=== PATIENT | male | born 1980 | race Hispanic/Latino ===

== ENCOUNTER 2019-12-12 19:11 | Emergency (ER) | payer MEDICARE ==
[2019-12-12 20:02] LABS: Amphetamine Screen,Urine PRESUMPTIVE NEGATIVE; Benzodiazepines Screen,Urine PRESUMPTIVE NEGATIVE; Cannabinoid Screen,Urine PRESUMPTIVE NEGATIVE; Cocaine Screen,Urine PRESUMPTIVE NEGATIVE; Methadone Screen,Urine PRESUMPTIVE NEGATIVE; Opiate Screen,Urine PRESUMPTIVE NEGATIVE
[2019-12-12 20:04] LABS: Bilirubin,Urine NEG (Negative); Blood,Urine NEG (Negative); Color,Urine Yellow (Yellow); Sperm,Urine FEW /HPF (NP); Urobilinogen,Urine < 2.0 mg/dL (<2.0); WBC,Urine < 1.0 /HPF (0.0-6.0)
[2019-12-12 20:18] LABS: Hematocrit 43.6 % (35.5-45.6); Hemoglobin 14.8 gm/dl (11.8-15.2); Mean Corpuscular HGB Conc 34 % (32-34); Mean Corpuscular Volume 89 fl (84-94); Platelet Count 232 K/mm3 (140-440); Red Blood Count 4.89 M/mm3 (3.65-5.03); Red Cell Distribution Width 13.8 % (13.2-15.2)
[2019-12-12 20:35] LABS: BUN/Creatinine Ratio 13; Blood Urea Nitrogen 10 mg/dL (9-20); Calcium 9.8 mg/dL (8.4-10.2); Hemolysis Index 9
--- NOTE | 2019-12-12 20:57 | Emergency Department Report ---
ED General Adult HPI - General Chief complaint: Psych Stated complaint: HOMICIDAL IDEATION Time Seen by Provider: 12/12/19 19:37 PUI?: No Source: patient, RN notes reviewed, old records reviewed Mode of arrival: Ambulatory Limitations: No Limitations - History of Present Illness Initial comments: The patient is a 38-year-old gentleman with a history of psychiatric disease. He reports that he was recently released from an inpatient psychiatric hospitalization and transferred to a skilled nursing. He has been in this skilled nursing for 2 days. He states he does not like this skilled nursing. He states that he feels "unsafe there." He reports that he is concerned that somebody stole some of his things. He reports that being in this skilled nursing makes him feel homicidal, and that he might "lash out." He denies physical pain at this time. He denies suicidality and wanting to overdose. This is a new skilled nursing for the patient, previously, he was in another skilled nursing, which "kicked me out because of drinking alcohol." He denies cough, fever, urinary symptoms, overdose, and coronavirus exposure. -: Gradual Severity scale (0 -10): 0 Consistency: constant Improves with: none Worsens with: none Associated Symptoms: denies other symptoms - Related Data Home Medications Medication Instructions Recorded Confirmed Last Taken Benztropine [Cogentin] 1 mg PO BID 05/05/14 12/12/19 Unknown Methylphenidate HCl [Ritalin] 10 mg PO BID 05/05/14 12/12/19 Unknown QUEtiapine [SEROquel] 600 mg PO HS 05/05/14 12/12/19 Unknown Paliperidone [Invega] 6 mg PO DAILY 12/12/19 12/12/19 Unknown propranoloL [Inderal] 20 mg PO HS 12/12/19 12/12/19 Unknown Allergies Allergy/AdvReac Type Severity Reaction Status Date / Time [place] Allergy Swelling Verified 05/05/14 06:30 ED Review of Systems ROS: Stated complaint: HOMICIDAL IDEATION Other details as noted in HPI Comment: All other systems reviewed and negative Psychiatric: as per HPI. denies: anxiety, depression, auditory hallucinations, visual hallucinations, suicidal thoughts ED Past Medical Hx - Past Medical History Previous Medical History?: Yes Hx Psychiatric Treatment: Yes (paranoid, schizophrenia) Hx Asthma: Yes - Surgical History Past Surgical History?: Yes Additional Surgical History: left knee surgery - Social History Smoking Status: Current Every Day Smoker Substance Use Type: Alcohol - Medications Home Medications: Home Medications Medication Instructions Recorded Confirmed Last Taken Type Benztropine [Cogentin] 1 mg PO BID 05/05/14 12/12/19 Unknown History Methylphenidate HCl [Ritalin] 10 mg PO BID 05/05/14 12/12/19 Unknown History QUEtiapine [SEROquel] 600 mg PO HS 05/05/14 12/12/19 Unknown History Paliperidone [Invega] 6 mg PO DAILY 12/12/19 12/12/19 Unknown History propranoloL [Inderal] 20 mg PO HS 12/12/19 12/12/19 Unknown History ED Physical Exam - General Limitations: No Limitations General appearance: alert, in no apparent distress - Head Head exam: Present: atraumatic, normocephalic - Eye Eye exam: Present: normal appearance, PERRL, EOMI, other (Visual acuity intact to finger counting, color perception, reading at a close distance). Absent: nystagmus - ENT ENT exam: Present: normal exam, normal orophraynx, mucous membranes moist, normal external ear exam - Neck Neck exam: Present: normal inspection, full ROM. Absent: tenderness, meningismus - Respiratory Respiratory exam: Present: normal lung sounds bilaterally. Absent: respiratory distress - Cardiovascular Cardiovascular Exam: Present: normal rhythm, tachycardia, normal heart sounds. Absent: systolic murmur, diastolic murmur, rubs, gallop - GI/Abdominal GI/Abdominal exam: Present: soft. Absent: distended, tenderness, guarding, rebound, rigid, pulsatile mass - Rectal Rectal exam: Present: deferred - Extremities Exam Extremities exam: Present: normal inspection, full ROM, other (2+ pulses noted in the bilateral upper and lower extremities. There is no palpable cord. negative Homans sign. Muscular compartments are soft. The pelvis is stable.). Absent: pedal edema, calf tenderness - Back Exam Back exam: Present: normal inspection, full ROM. Absent: tenderness, CVA tenderness (R), CVA tenderness (L), paraspinal tenderness, vertebral tenderness - Neurological Exam Neurological exam: Present: alert, oriented X3, normal gait, other (There is no facial droop. The tongue is midline. Extraocular movements are intact bi laterally. There is 5 out of 5 strength in bilateral upper and lower extremities. Sensation is intact to light touch bilateral upper and lower extremities. There is no past-pointing. There is no pronator drift. There is normal [id number]. There is a normal gait.). Absent: motor sensory deficit - Psychiatric Psychiatric exam: Present: flat affect. Absent: suicidal ideation - Skin Skin exam: Present: warm, dry, intact, normal color. Absent: rash ED Course Vital Signs 12/12/19 12/12/19 12/12/19 19:35 22:49 23:10 Temperature 98.4 F Pulse Rate 104 H 94 H Pulse Rate [ 82 Bilateral Throughout] Respiratory 18 Rate Respiratory 18 Rate [Bilateral Throughout] Blood Pressure 119/78 Blood Pressure 126/90 [Left] O2 Sat by Pulse 94 Oximetry 12/13/19 12/13/19 01:44 13:38 Temperature 97.6 F 98.3 F Pulse Rate 77 72 Pulse Rate [ Bilateral Throughout] Respiratory 16 18 Rate Respiratory Rate [Bilateral Throughout] Blood Pressure Blood Pressure 107/42 100/60 [Left] O2 Sat by Pulse 95 97 Oximetry - Reevaluation(s) Reevaluation #1: 12/12/19 20:55 Differential diagnosis, including but not limited to: Mood disorder, case management patient, malingering, secondary gain, medical clearance for psychiatric placement Assessment and plan: 38-year-old gentleman who is pleasant, calm and cooperative, not violent, combative or belligerent, who is presenting after being in a skilled nursing for 2 days, with dissatisfaction with his skilled nursing, and an articulation of wanting to possibly harm other people. His physical examination is unremarkable. Laboratory studies unremarkable for toxicologic insult. I had extensive discussion with the patient. He is alert, oriented, sober, walks with a steady gait, and he does exhibit decision-making capacity. I instructed the patient that we would be happy to observe him overnight pending psychiatric evaluation and case management evaluation, however, I have a suspicion that the patient is articulating psychiatric symptoms because he is dissatisfied with his current living situation. The patient tells me that he does not want to go to a homeless group home, he also tells me that he cannot go home to his mother, because "she kicked me out." He does report that his mother gets checks for his skilled nursing placement, that she pays the bills for his skilled nursing placement. He also demonstrated insight and decision-making capacity insofar is that he does not want to get coronavirus, or get sick from any patient who has coronavirus. The patient does not have coronavirus risk factors at this time, or symptoms suggestive of coronavirus. We will continue his medications. A psychiatric consultation and case management evaluation have been requested. At the moment, the patient does not appear to have an immediate medical and contraindication to psychiatric admission, evaluation, consultation and placement, or discharge, if case management and psychiatry feel like this is appropriate ED Medical Decision Making - Lab Data Result diagrams: 12/12/19 19:57 12/12/19 19:57 Vital Signs 12/12/19 19:35 Temperature 98.4 F Pulse Rate 104 H Respiratory 18 Rate Blood Pressure 126/90 [Left] O2 Sat by Pulse 94 Oximetry Lab Results 12/12/19 12/12/19 12/12/19 Range/Units 19:40 19:40 19:57 WBC (4.5-11.0) K/mm3 RBC (3.65-5.03) M/mm3 Hgb (11.8-15.2) gm/dl Hct (35.5-45.6) % MCV (84-94) fl MCH (28-32) pg MCHC (32-34) % RDW (13.2-15.2) % Plt Count (140-440) K/mm3 Sodium (137-145) mmol/L Potassium (3.6-5.0) mmol/L Chloride (98-107) mmol/L Carbon Dioxide (22-30) mmol/L Anion Gap mmol/L BUN (9-20) mg/dL Creatinine (0.8-1.5) mg/dL Estimated GFR ml/min BUN/Creatinine Ratio % Glucose (75-100) mg/dL Calcium (8.4-10.2) mg/dL Urine Color Yellow (Yellow) Urine Turbidity Clear (Clear) Urine pH 6.0 (5.0-7.0) Ur Specific [place] 1.026 (1.003-1.030) Urine Protein 30 mg/dl (Negative) mg/dL Urine Glucose (UA) Neg (Negative) mg/dL Urine Ketones Neg (Negative) mg/dL Urine Blood Neg (Negative) Urine Nitrite Neg (Negative) Urine Bilirubin Neg (Negative) Urine Urobilinogen < 2.0 (<2.0) mg/dL Ur Leukocyte Esterase Neg (Negative) Urine WBC (Auto) < 1.0 (0.0-6.0) /HPF Urine RBC (Auto) 1.0 (0.0-6.0) /HPF Urine Sperm Few (RFID ENGINEER) /HPF Salicylates < 0.3 L (2.8-20.0) mg/dL Urine Opiates Screen Presumptive negative Urine Methadone Screen Presumptive negative Acetaminophen (10.0-30.0) ug/mL Ur Barbiturates Screen Presumptive negative Ur Phencyclidine Scrn Presumptive negative Ur Amphetamines Screen Presumptive negative U Benzodiazepines Scrn Presumptive negative Urine Cocaine Screen Presumptive negative U Marijuana (THC) Screen Presumptive negative Drugs of Abuse Note Disclamer Plasma/Serum Alcohol (0-0.07) % 12/12/19 12/12/19 12/12/19 Range/Units 19:57 19:57 19:57 WBC (4.5-11.0) K/mm3 RBC (3.65-5.03) M/mm3 Hgb (11.8-15.2) gm/dl Hct (35.5-45.6) % MCV (84-94) fl MCH (28-32) pg MCHC (32-34) % RDW (13.2-15.2) % Plt Count (140-440) K/mm3 Sodium 138 (137-145) mmol/L Potassium 3.7 (3.6-5.0) mmol/L Chloride 99.5 (98-107) mmol/L Carbon Dioxide 20 L (22-30) mmol/L Anion Gap 22 mmol/L BUN 10 (9-20) mg/dL Creatinine 0.8 (0.8-1.5) mg/dL Estimated GFR > 60 ml/min BUN/Creatinine Ratio 13 % Glucose 102 H (75-100) mg/dL Calcium 9.8 (8.4-10.2) mg/dL Urine Color (Yellow) Urine Turbidity (Clear) Urine pH (5.0-7.0) Ur Specific [place] (1.003-1.030) Urine Protein (Negative) mg/dL Urine Glucose (UA) (Negative) mg/dL Urine Ketones (Negative) mg/dL Urine Blood (Negative) Urine Nitrite (Negative) Urine Bilirubin (Negative) Urine Urobilinogen (<2.0) mg/dL Ur Leukocyte Esterase (Negative) Urine WBC (Auto) (0.0-6.0) /HPF Urine RBC (Auto) (0.0-6.0) /HPF Urine Sperm (RFID ENGINEER) /HPF Salicylates (2.8-20.0) mg/dL Urine Opiates Screen Urine Methadone Screen Acetaminophen < 5.0 L (10.0-30.0) ug/mL Ur Barbiturates Screen Ur Phencyclidine Scrn Ur Amphetamines Screen U Benzodiazepines Scrn Urine Cocaine Screen U Marijuana (THC) Screen Drugs of Abuse Note Plasma/Serum Alcohol < 0.01 (0-0.07) % 12/12/19 Range/Units 19:57 WBC 10.5 (4.5-11.0) K/mm3 RBC 4.89 (3.65-5.03) M/mm3 Hgb 14.8 (11.8-15.2) gm/dl Hct 43.6 (35.5-45.6) % MCV 89 (84-94) fl MCH 30 (28-32) pg MCHC 34 (32-34) % RDW 13.8 (13.2-15.2) % Plt Count 232 (140-440) K/mm3 Sodium (137-145) mmol/L Potassium (3.6-5.0) mmol/L Chloride (98-107) mmol/L Carbon Dioxide (22-30) mmol/L Anion Gap mmol/L BUN (9-20) mg/dL Creatinine (0.8-1.5) mg/dL Estimated GFR ml/min BUN/Creatinine Ratio % Glucose (75-100) mg/dL Calcium (8.4-10.2) mg/dL Urine Color (Yellow) Urine Turbidity (Clear) Urine pH (5.0-7.0) Ur Specific [place] (1.003-1.030) Urine Protein (Negative) mg/dL Urine Glucose (UA) (Negative) mg/dL Urine Ketones (Negative) mg/dL Urine Blood (Negative) Urine Nitrite (Negative) Urine Bilirubin (Negative) Urine Urobilinogen (<2.0) mg/dL Ur Leukocyte Esterase (Negative) Urine WBC (Auto) (0.0-6.0) /HPF Urine RBC (Auto) (0.0-6.0) /HPF Urine Sperm (RFID ENGINEER) /HPF Salicylates (2.8-20.0) mg/dL Urine Opiates Screen Urine Methadone Screen Acetaminophen (10.0-30.0) ug/mL Ur Barbiturates Screen Ur Phencyclidine Scrn Ur Amphetamines Screen U Benzodiazepines Scrn Urine Cocaine Screen U Marijuana (THC) Screen Drugs of Abuse Note Plasma/Serum Alcohol (0-0.07) % Critical care attestation.: If time is entered above; I have spent that time in minutes in the direct care of this critically ill patient, excluding procedure time. ED Disposition Clinical Impression: Medical clearance for psychiatric admission Disposition: [id number]/TX-65 PSY HOSP/PSY UNIT Is pt being admited?: No Does the pt Need Aspirin: No Condition: Stable Referrals: VEDA DELUCA MD [Primary Care Provider] - 3-5 Days
[2019-12-12] MEDS ORDERED: LORazepam 1 MG TAB PO PRN (20:58)
[2019-12-12] MEDS ORDERED: QUEtiapine 200 MG TAB PO SCH (22:00)
[2019-12-12] MEDS ORDERED: PROPRANOLOL 10 MG TAB PO SCH (22:00)
[2019-12-12] MEDS ORDERED: METHYLPHENIDATE HCL 10 MG PO SCH (22:00)
[2019-12-12] MEDS ORDERED: QUEtiapine 25 MG TAB PO SCH (22:00)
[2019-12-12] MEDS: BENZTROPINE 1 MG TAB PO SCH (22:06)
[2019-12-12] MEDS: METHYLPHENIDATE 5 MG TAB PO SCH (22:46)
[2019-12-12] MEDS ORDERED: ALBUTEROL 2.5 MG/3 ML NEBU IH ONE (22:48)
[2019-12-13] MEDS: METHYLPHENIDATE 5 MG TAB PO SCH (11:06)
[2019-12-13] MEDS: BENZTROPINE 1 MG TAB PO SCH (11:07)
[2019-12-13] MEDS ORDERED: NICOTINE 21 MG/24 HR PATCH TD ONE (13:37)
[2019-12-13 13:41] VITALS: BP 100/60
== END 2019-12-13 17:07 ==
LOC: ED 19:11
DX: F20.0 Paranoid schizophrenia (principal); R45.850 Homicidal ideations; J45.909 Unspecified asthma, uncomplicated; F17.200 Nicotine dependence, unspecified, uncomplicated; Z98.890 Other specified postprocedural states; Z91.018 Allergy to other foods
CPT/HCPCS: 36415; 80048; 80307; 80320; 81001; 82550; 83735; 85027; 94640; 94644; G0480

== ENCOUNTER 2021-06-22 05:42 | Emergency (ER) | payer MEDICARE ==
[2021-06-22] MEDS ORDERED: SODIUM CHLORIDE 0.9% 1000 ML 1,000 ML IV ONE (06:34)
--- NOTE | 2021-06-22 06:44 | Emergency Department Report ---
ED Psych HPI - General Chief Complaint: Psych Stated Complaint: MH Time Seen by Provider: 06/22/21 06:33 Source: patient Mode of arrival: Ambulatory - History of Present Illness Initial Comments: Patient is 40 years old male with history of paranoid schizophrenia. Patient presented to the ER stating that he took 100 pill of Benadryl 25 mg. Patient stated that he started taking it yesterday around 8 AM and the last pill that he took was around midnight. Patient stated that he did not wanted to kill himself but he was depressed and he has nothing to do so he started to take the Benadryl. Patient denied homicidal ideation. Patient admitted that he is hearing voices but they are not asking him to kill himself to ask him to stop taking the Benadryl and go to the emergency room to get help. Patient stated that he is not compliant with his medication. MD Complaint: feels depressed -: days(s) Associated Psychiatric Symptoms: depression, auditory hallucinations Quality: constant Context: not taking psychiatric Associated Symptoms: denies other symptoms Treatments Prior to Arrival: none - Related Data Home Medications Medication Instructions Recorded Confirmed Last Taken Benztropine [Cogentin] 1 mg PO BID 05/05/14 06/22/21 Unknown Methylphenidate HCl [Ritalin] 10 mg PO BID 05/05/14 06/22/21 Unknown QUEtiapine [SEROquel] 600 mg PO HS 05/05/14 06/22/21 Unknown Paliperidone [Invega] 6 mg PO DAILY 12/12/19 06/22/21 Unknown propranoloL [Inderal] 20 mg PO HS 12/12/19 06/22/21 Unknown Allergies Allergy/AdvReac Type Severity Reaction Status Date / Time Mcdonald Allergy Swelling Verified 05/05/14 06:30 ED Review of Systems ROS: Stated complaint: MH Other details as noted in HPI Comment: All other systems reviewed and negative Constitutional: denies: chills, fever Respiratory: denies: cough, shortness of breath, SOB with exertion Cardiovascular: denies: chest pain, palpitations Gastrointestinal: denies: abdominal pain, nausea, vomiting (She did swallow p.o. is a few crackers) Musculoskeletal: denies: back pain Neurological: denies: headache, weakness, numbness, paresthesias, confusion Psychiatric: depression, auditory hallucinations. denies: homicidal thoughts, suicidal thoughts ED Past Medical Hx - Past Medical History Hx Psychiatric Treatment: Yes (paranoid, schizophrenia) Hx Asthma: Yes - Surgical History Additional Surgical History: left knee surgery - Social History Smoking Status: Current Every Day Smoker Substance Use Type: Alcohol - Medications Home Medications: Home Medications Medication Instructions Recorded Confirmed Last Taken Type Benztropine [Cogentin] 1 mg PO BID 05/05/14 06/22/21 Unknown History Methylphenidate HCl [Ritalin] 10 mg PO BID 05/05/14 06/22/21 Unknown History QUEtiapine [SEROquel] 600 mg PO HS 05/05/14 06/22/21 Unknown History Paliperidone [Invega] 6 mg PO DAILY 12/12/19 06/22/21 Unknown History propranoloL [Inderal] 20 mg PO HS 12/12/19 06/22/21 Unknown History ED Physical Exam - General Limitations: No Limitations General appearance: alert, in no apparent distress - Head Head exam: Present: atraumatic, normocephalic, normal inspection - Eye Eye exam: Present: normal appearance - ENT ENT exam: Present: normal exam, normal orophraynx, mucous membranes moist - Neck Neck exam: Present: normal inspection, full ROM. Absent: tenderness, meningismus - Respiratory Respiratory exam: Present: normal lung sounds bilaterally - Cardiovascular Cardiovascular Exam: Present: regular rate, normal rhythm, normal heart sounds - GI/Abdominal GI/Abdominal exam: Present: soft, normal bowel sounds. Absent: distended, tenderness, guarding, rebound, rigid, organomegaly, mass, bruit, pulsatile mass, hernia - Extremities Exam Extremities exam: Present: normal inspection, full ROM, normal capillary refill. Absent: tenderness - Back Exam Back exam: Present: normal inspection, full ROM. Absent: CVA tenderness (R), CVA tenderness (L) - Neurological Exam Neurological exam: Present: alert, oriented X3, CN II-XII intact, normal gait, reflexes normal. Absent: motor sensory deficit - Psychiatric Psychiatric exam: Present: normal mood. Absent: agitated, homicidal ideation, suicidal ideation - Skin Skin exam: Present: warm, intact, normal color ED Course Vital Signs 06/22/21 06/22/21 06/22/21 06:41 07:22 11:46 Temperature 98.0 F Pulse Rate 80 68 Respiratory 18 16 Rate Blood Pressure 118/59 115/72 [Left] O2 Sat by Pulse 99 96 96 Oximetry ED Medical Decision Making - Lab Data Result diagrams: 06/22/21 06:47 06/22/21 06:47 - Medical Decision Making Patient is 40 years old male with history of paranoid schizophrenia. Patient presented to the ER stating that he took 100 pill of Benadryl 25 mg. Patient stated that he started taking it yesterday around 8 AM and the last pill that he took was around midnight. Patient stated that he did not wanted to kill himself but he was depressed and he has nothing to do so he started to take the Benadryl. Patient denied homicidal ideation. Patient admitted that he is hearing voices but they are not asking him to kill himself to ask him to stop taking the Benadryl and go to the emergency room to get help. Patient stated that he is not compliant with his medication. Patient remained stable in the ER with a stable vital sign. EKG is unremarkable. Patient is medically clear to be evaluated by mental health. Critical care attestation.: If time is entered above; I have spent that time in minutes in the direct care of this critically ill patient, excluding procedure time. ED Disposition Clinical Impression: Paranoid schizophrenia, Intentional drug overdose Disposition: [address] [place] [address] HOSPITAL Is pt being admited?: No Condition: Stable Referrals: PRIMARY CARE, [Primary Care Provider] - 3-5 Days
[2021-06-22 07:05] LABS: Basophils # (Auto) 0.1 K/mm3 (0.0-0.1); Basophils % (Auto) 0.8 % (0.0-1.8); Eosinophils # (Auto) 0.2 K/mm3 (0.0-0.4); Eosinophils % (Auto) 2.6 % (0.0-4.3); Hemoglobin 12.8 gm/dl (11.8-15.2); Lymphocytes # (Auto) 1.8 K/mm3 (1.2-5.4); Lymphocytes % (Auto) 26.7 % (13.4-35.0); Mean Corpuscular HGB Conc 33 % (32-34); Mean Corpuscular Volume 91 fl (84-94); Monocytes # (Auto) 0.5 K/mm3 (0.0-0.8); Monocytes % (Auto) 7.6 % (0.0-7.3); Platelet Count 237 K/mm3 (140-440); Red Blood Count 4.28 M/mm3 (3.65-5.03); Red Cell Distribution Width 14.1 % (13.2-15.2)
[2021-06-22 07:23] LABS: BUN/Creatinine Ratio 11; Blood Urea Nitrogen 9 mg/dL (9-20); Calcium 9.5 mg/dL (8.4-10.2); Hemolysis Index 6
[2021-06-22 09:52] LABS: Bilirubin,Urine NEG (Negative); Blood,Urine NEG (Negative); Color,Urine Straw (Yellow); Protein,Urine <15 mg/dL mg/dL (Negative); RBC,Urine < 1.0 /HPF (0.0-6.0); Urobilinogen,Urine < 2.0 mg/dL (<2.0)
[2021-06-22 09:54] LABS: WBC,Urine < 1.0 /HPF (0.0-6.0)
[2021-06-22 10:00] LABS: Amphetamine Screen,Urine Negative; Benzodiazepines Screen,Urine Negative; Cannabinoid Screen,Urine Negative; Cocaine Screen,Urine Negative; Methadone Screen,Urine Negative; Opiate Screen,Urine Negative
[2021-06-22 11:47] VITALS: BP 115/72
--- NOTE | 2021-06-22 12:45 | Consultation ---
History of Present Illness - Reason for Consult Consult date: 06/22/21 Reason for consult: si - History of Present Psychiatric Illness Guillermo Dickey is a 40y/o male patient who was seen today for depression with a suicidal attempt. The patient says he overdosed on Benadryl. He says he's sick of living and just wants to . The patient says he feels like people keeps messing with him and the world is out to get him. He says he has a history of schizophrenia and ADHD. He says he takes Seroquel and Cogentin. The patient says he has not been complaint with his medications. He says he hears voices telling him he needs help. PAST PSYCHIATRIC HISTORY: Diagnoses: Schizophrenia and Depression Suicide attempts or Self-harm behavior: Yes Prior psychiatric hospitalizations: Yes Substance Abuse history: Denies Previous psychiatric medications tried: Seroquel, Cogintin Outpatient treatment: Denies PAST MEDICAL HISTORY: None reported or document Family Psychiatric History: None reported or documented SOCIAL HISTORY Marital Status: Single Living Arrangements: retirement Employment Status: Disabed Access to guns/weapons: Denies Education: History of Abuse: Denies Legal History: Denies REVIEW OF SYSTEMS Constitutional: Negative for weight loss ENT: Negative for stridor Respiratory: Negative for cough or hemoptysis All other systems reviewed and are negative MENTAL STATUS EXAMINATION General Appearance and Behavior: Age appropriate, good hygiene, wearing appropriate clothes. Cooperation: cooperative Psychomotor Behavior: Psychomotor normal Mood: Depressed Affect and affective range: Incongruent with stated mood Thought Process: circumstantial Thought Content: None Speech: Normal volume, Regular rate and rhythm, Suicidal Ideation: Yes Homicidal Ideation: Denies Hallucinations: Yes Delusions: Yes Impulse Control: Unimpaired Insight and Judgment: Poor Memory: limited Attention: Distractible Orientation: alert and oriented Assessment and Plan (1) Schizophrenia Current Visit: Yes Status: Acute Treatment Plan 1013 Restart Seroquel 100mg po BID Cogentin 2mg po daily Sitter: per primary Medical: per primary Disposition: Recommend acute psychiatric inpatient treatment Will follow. Thanks Case staffed with Dr. Mcgowan Medications and Allergies Allergies Allergy/AdvReac Type Severity Reaction Status Date / Time Conner Allergy Swelling Verified 05/05/14 06:30 Home Medications Medication Instructions Recorded Confirmed Last Taken Type Benztropine [Cogentin] 1 mg PO BID 05/05/14 12/12/19 Unknown History Methylphenidate HCl [Ritalin] 10 mg PO BID 05/05/14 12/12/19 Unknown History QUEtiapine [SEROquel] 600 mg PO HS 05/05/14 12/12/19 Unknown History Paliperidone [Invega] 6 mg PO DAILY 12/12/19 12/12/19 Unknown History propranoloL [Inderal] 20 mg PO HS 12/12/19 12/12/19 Unknown History Mental Status Exam - Vital signs Last Vital Signs Temp 98.0 F 06/22/21 06:41 Pulse 68 06/22/21 11:46 Resp 16 06/22/21 11:46 BP 115/72 06/22/21 11:46 Pulse Ox 96 06/22/21 11:46 Results Result Diagrams: 06/22/21 06:47 06/22/21 06:47 Abnormal lab results 06/22/21 06/22/21 06/22/21 Range/Units 06:47 06:47 06:47 Nicholas % (Auto) 7.6 H (0.0-7.3) % Salicylates < 0.3 L (2.8-20.0) mg/dL Acetaminophen 5.0 L (10.0-30.0) ug/mL All other labs normal.
[2021-06-22] MEDS ORDERED: QUEtiapine 100 MG TAB PO SCH ×2 (13:00→22:00)
[2021-06-23] MEDS ORDERED: BENZTROPINE 1 MG TAB PO SCH (10:00)
--- NOTE | 2021-06-23 17:33 | Electrocardiograph Report ---
[facility] Test Date: 2021-06-22 Test Time: 06:06:50 Pat Name: EVELYN ORONA Department: Room: Gender: M [employer] Operator: [id number] : 1980 Requested By: ESTEBAN DIAMOND Order Number: [id number] Reading MD: Nathan Green Measurements Intervals [place] Rate: 86 P: 21 TX: 143 QRS: 9 QRSD: 81 T: 14 QT: 385 QTc: 461 Interpretive Statements Sinus rhythm No previous ECG available for comparison Electronically Signed On 06-23-2021 17:33:36 EDT by Nathan Green
== END 2021-06-22 16:24 ==
LOC: ED 05:42
DX: T45.0X2A Poisoning by antiallergic and antiemetic drugs, intentional self-harm, initial encounter (principal); F20.0 Paranoid schizophrenia; J45.909 Unspecified asthma, uncomplicated; F17.200 Nicotine dependence, unspecified, uncomplicated; Z72.89 Other problems related to lifestyle; Z91.018 Allergy to other foods; Z79.899 Other long term (current) drug therapy; Y92.89 Other specified places as the place of occurrence of the external cause
CPT/HCPCS: 36415; 80048; 80307; 81001; 85025; 93005; 96360; 99285; J7030; 80320; G0480